=== PATIENT | female | born 2000 | race Caucasian/White ===

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

== ENCOUNTER 2025-01-28 18:39 | Emergency (ER) | payer BC, OTHER ==
[~2025-01-28] VITALS: Ht 149.9 cm; Wt 46.4 kg
[2025-01-28 19:08] LABS: Basophils # (auto) 0 10 ^3/uL (0-0.2); Basophils % (auto) 0.4 % (0.0-2.0); Eosinophils # (auto) 0.1 10 ^3/uL (0-0.8); Eosinophils % (auto) 1.4 % (0.0-7.0); Hematocrit 41.8 % (36.0-46.0); Hemoglobin 14.2 g/dL (12.2-16.2); Lymphocytes # (auto) 2.4 10 ^3/uL (0.4-5.4); Lymphocytes % (auto) 24.5 % (10.0-50.0); Mean Corpuscular Hemoglobin 30.8 pg (28.0-32.0); Mean Corpuscular Volume 90.6 fL (80.0-100.0); Monocytes # (auto) 0.4 10 ^3/uL (0-1.3); Monocytes % (auto) 4.5 % (0.0-12.0); Neutrophils # (auto) 6.7 10 ^3/uL (1.6-8.6); Neutrophils % (auto) 69.2 % (37.0-80.0); Nucleated Red Blood Cells % 0.1 %; Platelet Count (auto) 269 10^3/uL (140-450); Red Blood Cells 4.61 10^6/uL (4.0-5.20); White Blood Cell 9.7 10^3/uL (4.4-10.8)
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
[2025-01-28 19:20] LABS: Potassium 3.9 mmol/L (3.5-5.1); Sodium 140 mmol/L (136-145)
[2025-01-28 19:21] LABS: Anion Gap 9 (5-15); Carbon Dioxide 23 mmol/L (20-31)
[2025-01-28 19:22] LABS: Calcium 10.6 mg/dL (8.7-10.4); Chloride 108 mmol/L (98-107)
[2025-01-28 19:26] LABS: BUN/Creatinine Ratio 13.3 (10.0-20.0); Blood Urea Nitrogen 10 mg/dL (9-23); Glucose 102 mg/dL (74-106)
[2025-01-28 19:27] LABS: Magnesium 2.1 mg/dL (1.6-2.6)
[2025-01-28 20:55] VITALS: BP 123/76; TEMP 99.4
[2025-01-28 21:11] LABS: Urine Bacteria FEW /hpf (None Seen); Urine Blood Negative /uL (Negative); Urine Clarity Turbid (Clear); Urine Color Light-Orange (Yellow); Urine Mucus FEW (None Seen); Urine Protein, UAD TRACE (Negative); Urine Specific Gravity 1.028 (1.001-1.035); Urine Squamous Epithelial Cell FEW /hpf (<5); Urine Urobilinogen Normal (Negative); Urine WBC 9 /HPF (0-5)
[2025-01-28] MEDS ORDERED: BACDST PO (21:24)
[2025-01-28] MEDS: SULFAMETHOX W/TRIMETH(800/160MG) DS TAB PO ONE (22:03)
[2025-01-28 22:04] VITALS: PULSE 84; RESP 16; O2SAT 98
--- NOTE | 2025-01-29 01:35 | ECG ---
[facility] Test Date: 2025-01-28 Test Time: 21:13:07 Pat Name: HUNTER THAKUR Department: ED Room: Gender: F [employer] Specials: VERO : 2000 Requested By: TIM SCHILLING Order Number: [id number] Reading MD: Sebastián Bassett Measurements Intervals [place] Rate: 70 P: 50 HI: 97 QRS: 48 QRSD: 79 T: 64 QT: 392 QTc: 423 Interpretive Statements Sinus rhythm Short HI interval Electronically Signed On 01-29-2025 14:59:39 PDT by Sebastián Bassett Please click the below link to view image of tracing.
== END 2025-01-28 22:07 | disposition home or self-care (01) ==
LOC: ER 18:39
DX: N39.0 Urinary tract infection, site not specified (principal); R55 Syncope and collapse; F12.90 Cannabis use, unspecified, uncomplicated
CPT/HCPCS: 36415; 80048; 81001; 81025; 82947; 82962; 83735; 85025; 93005